=== PATIENT | female | born 1980 | race Caucasian/White ===

== ENCOUNTER 2018-07-10 08:00 | Day surgery (SDC) | payer OTHER ==
[2018-07-10] MEDS ORDERED: NAPROXEN500 MG PO (11:45)
[2018-07-10] MEDS ORDERED: DOXYCYCLINE HY100 MG PO (11:45)
[2018-07-10] MEDS ORDERED: XARELTO10 MG PO (11:47)
== END 2018-07-10 17:30 | disposition home or self-care (01) ==
LOC: CIR.AMB 08:00
DX: O02.1 Missed abortion (principal); Z3A.16 16 weeks gestation of pregnancy

== ENCOUNTER 2019-10-06 10:25 | Inpatient (IN) | payer OTHER ==
[~2019-10-06] VITALS: Ht 162.6 cm; Wt 87.5 kg
[~2019-10-06 10:25] MED LIST: DOXYCYCLINE HY100 MG PO; NAPROXEN500 MG PO; XARELTO10 MG PO
== END 2019-10-09 08:55 | disposition home or self-care (01) | DRG 807 ==
LOC: LDR 10-07 08:46 → CIR.AMB 10-07 10:20 → EDSTATUS 10-07 10:28 → OB/GYN 10-07 10:29
PROVIDERS: ADMIT Obstetrics & Gynecology
PROC: 10E0XZZ Delivery of Products of Conception, External Approach (ICD-10-PCS; principal; 2019-10-08)
PROC: 3E033VJ Introduction of Other Hormone into Peripheral Vein, Percutaneous Approach (ICD-10-PCS; 2019-10-08)
DX: O02.1 Missed abortion (principal); Z37.1 Single stillbirth; Z3A.20 20 weeks gestation of pregnancy

== ENCOUNTER 2020-05-04 06:33 | Day surgery (SDC) | payer OTHER | END 2020-05-04 17:45 | disposition home or self-care (01) | LOC: CIR.AMB 06:33 | PROVIDERS: ATTEND Obstetrics & Gynecology | DX: O02.1 Missed abortion (principal); Z20.828 Contact with and (suspected) exposure to other viral communicable diseases ==